=== PATIENT | female | born 1970 | race African-American/Black ===

== ENCOUNTER 2017-10-02 18:25 | Emergency (ER) | payer OTHER ==
[2017-10-02 18:39] VITALS: BP 139/66; PULSE 80; RESP 18; TEMP 97.5; O2SAT 100
[2017-10-02] MEDS ORDERED: PROPARACAINE HCL 0.5% OPHT SOLN 15 ML BTL EACH EYE ONE (22:45)
[2017-10-02] MEDS ORDERED: TETANUS/DIPHTHERIA TOXOID ADULT 0.5 ML VIAL IM ONE (22:45)
[2017-10-02] MEDS ORDERED: IBUPROFEN 600 MG TAB PO ONE (23:00)
[2017-10-02] MEDS ORDERED: DICL75TA PO (23:07)
--- NOTE | 2017-10-02 23:07 | PD ---
HPI Chief Complaint: Medical Clearance Time Seen by Provider: 22:36 Travel History International Travel<30 days: No Contact w/Intl Traveler<30days: No Traveled to known affect area: No History of Present Illness HPI 47-year-old black female presents to emergency department with complaints of left lower leg and left upper leg pain after being hit with a barrel of suntan oil at work earlier today. She states that she was leaving for break when another employee accidentally dropped a barrel striking her left pretibial region. She states the pain is mild to moderate. Worse with weightbearing. It struck her left pretibial region. It is also causing her to have pain in her left upper thigh and hip. No neck or back pain. She also goes on to state that a container of oil ruptured yesterday at work splattering on her face. She states that she had washed her face at that time. She was also wearing protective eyewear but feels that some had gone into her eyes. She has some slight foreign body sensation in her right eye. She denies any diplopia. No blurred vision. Patient has not had a tetanus shot over 5 years. She denies any numbness, tingling or focal weakness. PFS Past Medical History Medical History: Denies Significant Hx Tetanus Vaccination: > 5 Years ?: Not LMP: September Past Surgical History Surgical History: No Previous Surgery Social History Alcohol Use: No Tobacco Use: No Allergies-Medications (Allergen,Severity, Reaction): Coded Allergies: No Known Allergies (Unverified , 10/02/17) Reported Meds & Prescriptions Reported Meds & Active Scripts Active Diclofenac Sodium DR (Diclofenac Sodium) 75 Mg Tabdr 75 Mg PO BID Review of Systems General / Constitutional: No: Fever Eyes: Positive: Foreign Body Sensation, Pain, No: Diploplia, Blurred Vision, Photophobia, Drainage, Redness, Tearing, Visual changes HENT: No: Headaches, Neck Stiffness, Neck Pain Cardiovascular: No: Chest Pain or Discomfort Respiratory: No: Shortness of Breath Gastrointestinal: No: Abdominal Pain Genitourinary: No: Dysuria Musculoskeletal: Positive: Myalgias, Arthralgias, Pain, No: Limited ROM, Weakness, Edema Skin: No Rash Neurologic: No: Weakness Psychiatric: No: Depression Endocrine: No: Polydipsia Hematologic/Lymphatic: No: Easy Bruising Physical Exam Narrative GENERAL: Well-developed, well-nourished in no apparent distress. Nontoxic appearing. HEAD: Normocephalic, atraumatic. EYES: Pupils equal round and reactive. Extraocular motions intact. No scleral icterus. No injection or drainage. Lids are flipped and no foreign body seen. Proparacaine is instilled in both eyes. Fluorescein stain is negative for corneal abrasion or ulcer. No foreign body seen. 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 ENT: Nose clear. Throat without erythema, tonsillar hypertrophy or exudate. Uvula midline. Airway patent. NECK: Trachea midline. Supple, nontender, moves head freely. No central bony tenderness or spasm. CARDIOVASCULAR: Regular rate and rhythm without murmurs, gallops, or rubs. RESPIRATORY: Clear to auscultation. Breath sounds equal bilaterally. No wheezes , rales, or rhonchi. GASTROINTESTINAL: Abdomen soft, non-tender, nondistended. No hepato-splenomegaly , or palpable masses. No guarding. EXTREMITIES: No clubbing, cyanosis, or edema. Examination of the left lower extremity reveals tenderness to the left pretibial and infrapatellar region. There is no obvious deformity or edema. The skin is intact. No pain on percussion of the foot, ankle or knee. She also does complain of pain in her proximal anterior lateral thigh up into her left hip. The skin is intact. No erythema or warmth. No pain in the right lower extremity or upper extremities.. Walks with a antalgic gait. BACK: Nontender without deformity. No flank tenderness. Able to sit up in bed at 90. No spasm. No saddle anesthesia. NEUROLOGICAL: Awake, alert and oriented x 3 .Cranial nerves grossly intact. Motor and sensory grossly within normal limits. Normal speech. Data Data Last Documented VS Vital Signs Date Time Temp Pulse Resp B/P (MAP) Pulse Ox O2 Delivery O2 Flow Rate FiO2 10/02/17 18:39 97.5 80 18 139/66 (90) 100 Orders Orders Tetanus/Diphtheria Tox Adult (Tetanus/Di (10/02/17 22:45) Proparacaine 0.5% Opth Soln (Alcaine 0.5 (10/02/17 22:45) Femur (Ap & Lat/2vws) (10/02/17 22:52) Tibia/Fibula (Ap/Lat) (10/02/17 22:52) Ibuprofen (Motrin) (10/02/17 23:00) Ed Discharge Order (10/02/17 23:40) [facility] Medical Decision Making Medical Screen Exam Complete: Yes Emergency Medical Condition: Yes Medical Record Reviewed: Yes Interpretation(s) Left femur: Negative for acute bony injury. Left tib-fib: Negative for acute bony injury Differential Diagnosis MDM: High Differential diagnoses: Fracture, sprain, strain, dislocation, contusion, neurovascular injury, corneal abrasion, corneal ulcer, chemical irritation Narrative Course X-rays of the left femur and left tib-fib are negative for bony injury. I suspect her symptoms are more of a myofascial nature. I see no evidence of any acute bony or neurovascular injury. Fluorescein stain of the eyes reveal no abrasions or ulcers. No foreign bodies. She has bilateral pterygium and pinguecula. I suspect her eye irritation is secondary to the chemical exposure from yesterday but is mild in nature. I suspect this will resolve spontaneously. Patient will be given Motrin 600 mg by mouth for pain. She'll be given the next few days off from work and have her recheck with workman's comp. This is left leg contusion, ocular chemical exposure Diagnosis Primary Impression: left leg contusion Additional Impression: ocular chemical exposure Patient Instructions: General Instructions Departure Forms: Tests/Procedures, Work Release Special Instructions: No work 3 days. Additional Instructions: Rest. Elevation. Ice for the next few days. Medications as directed. Follow-up with workman's comp and a next 2-3 days for recheck. Return to the ER for any problems. Med/Other Pt SpecificInfo: Prescription(s) given Scripts Diclofenac Sodium DR (Diclofenac Sodium DR) 75 Mg Tabdr 75 MG PO BID, #20 TAB 0 Refills Prov: Garrett Valencia MD 10/02/17 Disposition: 01 DISCHARGE HOME Condition: Stable Lawrence Botello Oct 02, 2017 23:07
--- NOTE | 2017-10-02 23:39 | RADRPT ---
EXAM DATE/TIME: 10/02/2017 23:17 [facility] COMPARISON: No previous studies available for comparison. INDICATIONS : Left leg pain. Patient states she hit her left knee on a garbage can today. MEDICAL HISTORY : None. SURGICAL HISTORY : None. ENCOUNTER: Initial ACUITY: 1 day PAIN SCORE: 6/10 LOCATION: Left femur. FINDINGS: Two view examination of the left femur demonstrates no evidence of fracture or dislocation. Bony min eralization is normal. The soft tissue structures are intact. CONCLUSION: No evidence of recent bony injury. Gurjit Song MD on October 02, 2017 at 23:34 Board Certified Radiologist. This report was verified electronically.
--- NOTE | 2017-10-02 23:40 | RADRPT ---
EXAM DATE/TIME: 10/02/2017 23:19 [facility] COMPARISON: No previous studies available for comparison. INDICATIONS : Left leg pain. Patient states she hit her left knee on a garbage can today. MEDICAL HISTORY : None. SURGICAL HISTORY : None. ENCOUNTER: Initial ACUITY: 1 day PAIN SCORE: 6/10 LOCATION: Left tibia/fibula. FINDINGS: Two view examination of the left tibia demonstrates no evidence of fracture or dislocation. Bony min eralization is normal. The soft tissue structures are intact. CONCLUSION: No evidence of recent bony injury. Gurjit Song MD on October 02, 2017 at 23:38 Board Certified Radiologist. This report was verified electronically.
== END 2017-10-03 00:12 | disposition home or self-care (01) ==
LOC: NED 18:25 → NEPK 10-03 00:12
DX: S80.12XA Contusion of left lower leg, initial encounter (principal); W22.8XXA Striking against or struck by other objects, initial encounter; H57.8 Other specified disorders of eye and adnexa; Z77.098 Contact with and (suspected) exposure to other hazardous, chiefly nonmedicinal, chemicals; Y99.0 Civilian activity done for income or pay; Z23 Encounter for immunization
CPT/HCPCS: 73552; 73590; 90471; 90714